=== PATIENT | female | born 1945 | race Caucasian/White ===

== ENCOUNTER 2017-10-30 17:10 | Inpatient (IN) | payer MEDICARE, BC ==
--- NOTE | 2017-10-30 17:49 | EDM.PDOC ---
ED HPI GENERAL MEDICAL PROBLEM - General Chief Complaint: General Stated Complaint: Palpitations Time Seen by Provider: 10/30/17 17:10 Source of Information: Reports: Patient, Family History Limitations: Reports: No Limitations - History of Present Illness INITIAL COMMENTS - FREE TEXT/NARRATIVE: 72 y.o.w.f with a h/o paroxysmal a- fib, HTN and Hypothyroidism, came with her SO to the ED because of F/C and palpitations. On Arrival, her temp was 106 and her palpitations subsided. ECG showed NSR. Pt had a cardiac ablation at [facility] about a year ago. She has a bout 4 episodes of Paroxysmal a-fib a year since the ablation. She is on Metoprolol to prevent a RVR. She has painful urinations and toenail fungus as well. No cough. No other acute medical issues. Temp 38.1 BP 151/59 Pulse ox 93% on RA, HR 91 Onset: Today Onset Date: 10/30/17 Onset Time: 16:00 Duration: Hour(s):, Intermittent, Resolved Prior to Arrival Location: Reports: Chest Quality: Reports: Other (polpitation, no CP) Improves with: Reports: Rest Context: Reports: Other (H/O A fib) Associated Symptoms: Reports: Other (toe nail fungus) Headache Pain Score (Numeric/FACES): 6 - Related Data Allergies Allergy/AdvReac Type Severity Reaction Status Date / Time No Known Allergies Allergy Verified 10/30/17 17:31 Home Meds: Home Meds Doxepin [Doxepin HCl] 25 - 50 mg PO BEDTIME 10/30/17 [History] Hydrochlorothiazide 50 mg PO DAILY 10/30/17 [History] Levothyroxine [Synthroid] 88 mcg PO DAILY@04 10/30/17 [History] Metoprolol Tartrate 100 mg PO BID 10/30/17 [History] Potassium Chloride 10 meq PO DAILY 10/30/17 [History] amLODIPine [Norvasc] 5 mg PO DAILY 10/30/17 [History] Past Medical History Cardiovascular History: Reports: Afib, Hypertension Social & Family History - Family History Family Medical History: Noncontributory - Tobacco Use Smoking Status *Q: Former Smoker Used Tobacco, but Quit: Yes Month/Year Tobacco Last Used: 142 - Caffeine Use Caffeine Use: Reports: Coffee - Alcohol Use Days Per Week of Alcohol Use: 7 Number of Drinks Per Day: 3 Total Drinks Per Week: 21 - Recreational Drug Use Recreational Drug Use: No ED ROS GENERAL - Review of Systems Review Of Systems: See Below Constitutional: Reports: Fever, Chills ([employer]) HEENT: Reports: No Symptoms Respiratory: Reports: No Symptoms Cardiovascular: Reports: Palpitations (resolved [employer]) Endocrine: Reports: No Symptoms GI/Abdominal: Reports: No Symptoms : Reports: Dysuria Musculoskeletal: Reports: No Symptoms Skin: Reports: Other (toe nail fungus) Neurological: Reports: No Symptoms Psychiatric: Reports: No Symptoms Hematologic/Lymphatic: Reports: No Symptoms Immunologic: Reports: No Symptoms ED EXAM, GENERAL - Physical Exam Exam: See Below Exam Limited By: No Limitations General Appearance: Alert, WD/WN, No Apparent Distress Eye Exam: Bilateral Eye: Normal Inspection Ears: Normal External Exam Ear Exam: Bilateral Ear: Auricle Normal Nose: Normal Inspection, Normal Mucosa, No Blood Throat/Mouth: Normal Inspection, Normal Lips, Normal Gums, Normal Voice, No Airway Compromise Head: Atraumatic, Normocephalic Neck: Normal Inspection, Supple, Non-Tender, Full Range of Motion Respiratory/Chest: No Respiratory Distress, Lungs Clear, Normal Breath Sounds, Chest Non-Tender Cardiovascular: Normal Peripheral Pulses, Regular Rate, Rhythm, No Edema, No Gallop, No JVD, No Rub, Systolic Murmur Peripheral Pulses: 2+: Radial (L) GI/Abdominal: Normal Bowel Sounds (Female) Exam: Deferred Rectal (Female) Exam: Deferred Back Exam: Normal Inspection Extremities: Normal Inspection Neurological: Alert, Oriented, CN II-XII Intact, Normal Cognition, Normal Gait Psychiatric: Normal Affect, Normal Mood Skin Exam: Warm, Dry, Intact, Normal Color, No Rash Lymphatic: No Adenopathy EKG INTERPRETATION EKG Date: 10/30/17 Time: 17:20 Rhythm: NSR Rate (Beats/Min): 89 [place]: Normal P-Wave: Present QRS: Normal ST-T: Normal QT: Normal Comparison: NA - No Prior EKG Course - Vital Signs Text/Narrative:: 72 y.o.w.f with a h/o paroxysmal a- fib, HTN and Hypothyroidism, came with her SO to the ED because of F/C and palpitations. On Arrival, her temp was 106 and her palpitations subsided. ECG showed NSR. Pt had a cardiac ablation at [facility] about a year ago. She has a bout 4 episodes of Paroxysmal a-fib a year since the ablation. She is on Metoprolol to prevent a RVR. She has painful urinations and toenail fungus as well. No cough. No other acute medical issues. Temp 38.1 BP 151/59 Pulse ox 93% on RA, HR 91 Imaging: CXR: Atelectasis LLL of lung, No consolidation: as per RAD Labs: WBC 20.7K HGB 14.7 HCT 48.3 Neut 97% UA: WNL Na 133 K 3.2 GFR > 60 BUN 15 Cr 0.9 CRP 2.3 TSH 2.34 ECG: Atrium enlarged per ECG Impression: Palpitations, H/O paroxysmal A-fib, Elevated WBC (DDx Endocarditis) Tinea pedis, H/O Hypothyroidism. Hypokalemia, Hyponatremia, systolic ejection murmur(not new?). Tension H/A Tx: KCL, NS, Motrin for Tension Headache 7.31 pm Consultation: Dr. Roldan, Infection Disease Specialist, [facility]: Admit pt to [facility], repeat Bcx X 3 every 8 hours(total), Hydrate Pt and repeat CXR in am. No ABx at this time! Reexam: Pt's temp was 106 F, she was otherwise in her usual state of bianca, no chills, no cough. ambulating fine. Plan: Admit for OBS on Tele. Last Recorded V/S: Last Vital Signs Temp 37.5 C 10/31/17 12:00 Pulse 60 10/31/17 12:00 Resp 18 10/31/17 12:00 BP 115/59 L 10/31/17 12:00 Pulse Ox 60 L 10/31/17 12:00 - Orders/Labs/Meds Orders: Active Orders 24 hr Category Date Time Status CXR [Chest 2V] [CR] Stat Exams 10/30/17 18:41 Taken CULTURE BLOOD [BC] Urgent Lab 10/30/17 19:05 Received CULTURE BLOOD [BC] Urgent Lab 10/30/17 19:15 Received UA W/MICROSCOPIC [URIN] Stat Lab 10/30/17 17:54 Ordered Blood Culture x2 Reflex Set [OM.PC] Urgent Oth 10/30/17 18:44 Ordered EKG 12 Lead [EK] Routine Ther 10/30/17 17:59 Ordered Medication Orders Amlodipine Besylate (Norvasc) 5 mg PO DAILY [facility] Last Admin: 10/31/17 09:34 Dose: 5 mg Clindamycin Phosphate 600 mg/ (Sodium Chloride) 54 mls @ 150 mls/hr IV Q8H [facility] Last Admin: 10/31/17 12:04 Dose: 150 mls/hr Nafcillin Sodium 2 gm/ Sodium (Chloride) 100 mls @ 100 mls/hr IV Q4H [facility] Last Admin: 10/31/17 11:01 Dose: 100 mls/hr Ibuprofen (Motrin) 800 mg PO Q6H PRN PRN Reason: Pain (mild 1-3) Last Admin: 10/31/17 14:11 Dose: 800 mg Admin: 10/31/17 07:51 Dose: 800 mg Levothyroxine Sodium (Synthroid) 88 mcg PO 0600 [facility] Metoprolol Tartrate (Lopressor) 100 mg PO BID [facility] Last Admin: 10/31/17 09:35 Dose: 100 mg Potassium Chloride (Klor-Con 10) 10 meq PO DAILY [facility] Last Admin: 10/31/17 09:35 Dose: 10 meq Labs: Laboratory Tests 10/30/17 10/30/17 10/30/17 Range/Units 17:54 18:00 18:00 WBC 20.7 H (4.5-12.0) X10-3/uL RBC 4.82 (3.23-5.20) x10(6)uL Hgb 14.6 (11.5-15.5) g/dL Hct 42.7 (30.0-51.3) % MCV 88.5 (80-96) fL MCH 30.2 (27.7-33.6) pg MCHC 34.2 (32.2-35.4) g/dL RDW 12.3 (11.5-15.5) % Plt Count 209 (125-369) X10(3)uL MPV 9.8 (7.4-10.4) fL Neut % (Auto) 92.4 H (46-82) % Lymph % (Auto) 2.5 L (13-37) % [place] % (Auto) 2.3 L (4-12) % Eos % (Auto) 0 L (1.0-5.0) % Baso % (Auto) 3 H (0-2) % Neut # (Auto) 19.1 H (1.6-8.3) # Lymph # (Auto) 0.5 L (0.6-5.0) # [place] # (Auto) 0.5 (0.0-1.3) # Eos # (Auto) 0.0 (0.0-0.8) # Baso # (Auto) 0.6 H (0.0-0.2) # Sodium 133 L (135-145) mmol/L Potassium 3.2 L (3.5-5.3) mmol/L Chloride 97 L (100-110) mmol/L Carbon Dioxide 26 (21-32) mmol/L BUN 15 (7-18) mg/dL Creatinine 0.9 (0.55-1.02) mg/dL Est Cr Clr Drug Dosing 54.45 mL/min Estimated GFR (MDRD) > 60 (>60) BUN/Creatinine Ratio 16.7 (9-20) Glucose 105 (80-116) mg/dL Lactic Acid (0.4-2.2) mmol/L Calcium 8.7 (8.6-10.2) mg/dL Magnesium (1.8-2.5) mg/dL C-Reactive Protein (0.5-0.9) mg/dL TSH, Ultra Sensitive (0.36-3.74) IU/mL Urine Color Yellow (YELLOW) Urine Appearance Clear (CLEAR) Urine pH 7.0 H (5.0-6.5) Ur Specific [place] 1.005 L (1.010-1.025) Urine Protein Negative (NEGATIVE) mg/dL Urine Glucose (UA) Normal (NEGATIVE) mg/dL Urine Ketones Negative (NEGATIVE) mg/dL Urine Occult Blood Negative (NEGATIVE) Urine Nitrite Negative (NEGATIVE) Urine Bilirubin Negative (NEGATIVE) Urine Urobilinogen Normal (NEGATIVE) mg/dL Ur Leukocyte Esterase Negative (NEGATIVE) Urine RBC 0-5 (0) Urine WBC 0-5 (0) Ur Squamous Epith Cells Occasional (NS,R,O) Urine Bacteria Rare H (NS) 10/30/17 10/30/17 10/30/17 Range/Units 18:00 18:00 18:00 WBC (4.5-12.0) X10-3/uL RBC (3.23-5.20) x10(6)uL Hgb (11.5-15.5) g/dL Hct (30.0-51.3) % MCV (80-96) fL MCH (27.7-33.6) pg MCHC (32.2-35.4) g/dL RDW (11.5-15.5) % Plt Count (125-369) X10(3)uL MPV (7.4-10.4) fL Neut % (Auto) (46-82) % Lymph % (Auto) (13-37) % [place] % (Auto) (4-12) % Eos % (Auto) (1.0-5.0) % Baso % (Auto) (0-2) % Neut # (Auto) (1.6-8.3) # Lymph # (Auto) (0.6-5.0) # [place] # (Auto) (0.0-1.3) # Eos # (Auto) (0.0-0.8) # Baso # (Auto) (0.0-0.2) # Sodium (135-145) mmol/L Potassium (3.5-5.3) mmol/L Chloride (100-110) mmol/L Carbon Dioxide (21-32) mmol/L BUN (7-18) mg/dL Creatinine (0.55-1.02) mg/dL Est Cr Clr Drug Dosing mL/min Estimated GFR (MDRD) (>60) BUN/Creatinine Ratio (9-20) Glucose (80-116) mg/dL Lactic Acid 2.0 (0.4-2.2) mmol/L Calcium (8.6-10.2) mg/dL Magnesium 1.8 (1.8-2.5) mg/dL C-Reactive Protein (0.5-0.9) mg/dL TSH, Ultra Sensitive 2.43 (0.36-3.74) IU/mL Urine Color (YELLOW) Urine Appearance (CLEAR) Urine pH (5.0-6.5) Ur Specific [place] (1.010-1.025) Urine Protein (NEGATIVE) mg/dL Urine Glucose (UA) (NEGATIVE) mg/dL Urine Ketones (NEGATIVE) mg/dL Urine Occult Blood (NEGATIVE) Urine Nitrite (NEGATIVE) Urine Bilirubin (NEGATIVE) Urine Urobilinogen (NEGATIVE) mg/dL Ur Leukocyte Esterase (NEGATIVE) Urine RBC (0) Urine WBC (0) Ur Squamous Epith Cells (NS,R,O) Urine Bacteria (NS) 10/30/17 Range/Units 18:00 WBC (4.5-12.0) X10-3/uL RBC (3.23-5.20) x10(6)uL Hgb (11.5-15.5) g/dL Hct (30.0-51.3) % MCV (80-96) fL MCH (27.7-33.6) pg MCHC (32.2-35.4) g/dL RDW (11.5-15.5) % Plt Count (125-369) X10(3)uL MPV (7.4-10.4) fL Neut % (Auto) (46-82) % Lymph % (Auto) (13-37) % [place] % (Auto) (4-12) % Eos % (Auto) (1.0-5.0) % Baso % (Auto) (0-2) % Neut # (Auto) (1.6-8.3) # Lymph # (Auto) (0.6-5.0) # [place] # (Auto) (0.0-1.3) # Eos # (Auto) (0.0-0.8) # Baso # (Auto) (0.0-0.2) # Sodium (135-145) mmol/L Potassium (3.5-5.3) mmol/L Chloride (100-110) mmol/L Carbon Dioxide (21-32) mmol/L BUN (7-18) mg/dL Creatinine (0.55-1.02) mg/dL Est Cr Clr Drug Dosing mL/min Estimated GFR (MDRD) (>60) BUN/Creatinine Ratio (9-20) Glucose (80-116) mg/dL Lactic Acid (0.4-2.2) mmol/L Calcium (8.6-10.2) mg/dL Magnesium (1.8-2.5) mg/dL C-Reactive Protein 2.3 H (0.5-0.9) mg/dL TSH, Ultra Sensitive (0.36-3.74) IU/mL Urine Color (YELLOW) Urine Appearance (CLEAR) Urine pH (5.0-6.5) Ur Specific [place] (1.010-1.025) Urine Protein (NEGATIVE) mg/dL Urine Glucose (UA) (NEGATIVE) mg/dL Urine Ketones (NEGATIVE) mg/dL Urine Occult Blood (NEGATIVE) Urine Nitrite (NEGATIVE) Urine Bilirubin (NEGATIVE) Urine Urobilinogen (NEGATIVE) mg/dL Ur Leukocyte Esterase (NEGATIVE) Urine RBC (0) Urine WBC (0) Ur Squamous Epith Cells (NS,R,O) Urine Bacteria (NS) Meds: Medications Generic Name Dose Route Start Last Admin Trade Name Freq PRN Reason Stop Dose Admin Amlodipine Besylate 5 mg 10/31/17 09:00 10/31/17 09:34 Norvasc PO 5 mg DAILY [facility] Administration Clindamycin Phosphate 600 mg/ 54 mls @ 150 mls/hr 10/31/17 11:30 10/31/17 12: 04 Sodium Chloride IV 150 mls/hr Q8H [facility] Administration Nafcillin Sodium 2 gm/ Sodium 100 mls @ 100 mls/hr 10/31/17 11:00 10/31/17 11 :01 Chloride IV 100 mls/hr Q4H [facility] Administration Ibuprofen 800 mg 10/30/17 20:08 10/31/17 14:11 Motrin PO 800 mg Q6H PRN Administration Pain (mild 1-3) Levothyroxine Sodium 88 mcg 11/01/17 06:00 Synthroid PO 0600 [facility] Metoprolol Tartrate 100 mg 10/31/17 09:00 10/31/17 09:35 Lopressor PO 100 mg BID [facility] Administration Potassium Chloride 10 meq 10/31/17 09:30 10/31/17 09:35 Klor-Con 10 PO 10 meq DAILY [facility] Administration Discontinued Medications Generic Name Dose Route Start Last Admin Trade Name Freq PRN Reason Stop Dose Admin Sodium Chloride 1,000 mls @ 125 mls/hr 10/30/17 20:15 10/31/17 04:32 Normal Saline IV 125 mls/hr ASDIRECTED [facility] Administration Ibuprofen 800 mg 10/30/17 20:07 10/30/17 20:15 Motrin PO 10/30/17 20:08 800 mg ONETIME ONE Administration Potassium Chloride 40 meq 10/30/17 18:39 10/30/17 18:47 Klor-Con M20 PO 10/30/17 18:40 40 meq ONETIME ONE Administration Departure - Departure Time of Disposition: 20:30 Disposition: Refer to Observation Condition: Fair Clinical Impression: Elevated WBC count - Discharge Information - My Orders Last 24 Hours: My Active Orders 10/30/17 17:54 UA W/MICROSCOPIC [URIN] Stat 10/30/17 17:59 EKG 12 Lead [EK] Routine 10/30/17 18:41 CXR [Chest 2V] [CR] Stat 10/30/17 18:44 Blood Culture x2 Reflex Set [OM.PC] Urgent 10/30/17 19:05 CULTURE BLOOD [BC] Urgent 10/30/17 19:15 CULTURE BLOOD [BC] Urgent - Assessment/Plan Last 24 Hours: My Active Orders 10/30/17 17:54 UA W/MICROSCOPIC [URIN] Stat 10/30/17 17:59 EKG 12 Lead [EK] Routine 10/30/17 18:41 CXR [Chest 2V] [CR] Stat 10/30/17 18:44 Blood Culture x2 Reflex Set [OM.PC] Urgent 10/30/17 19:05 CULTURE BLOOD [BC] Urgent 10/30/17 19:15 CULTURE BLOOD [BC] Urgent
[2017-10-30] MEDS ORDERED: Potassium Chloride 20 MEQ Tab.ER PO ONE (18:39)
[2017-10-30] MEDS ORDERED: Ibuprofen 800 MG Tab PO ONE (20:07)
[2017-10-30] MEDS: Sodium Chloride 0.9% 1,000 ML IV SCH (20:15)
[2017-10-31] MEDS: Sodium Chloride 0.9% 1,000 ML IV SCH (04:32)
[2017-10-31] MEDS: Ibuprofen 800 MG Tab PO PRN ×3 (07:51→22:12)
[2017-10-31] MEDS: amLODIPine 5 MG Tab PO SCH (09:34)
[2017-10-31] MEDS: Metoprolol Tartrate 100 MG Tab PO SCH ×2 (09:35→21:56)
[2017-10-31] MEDS: Potassium Chloride 10 MEQ Tab.ER PO SCH (09:35)
[2017-10-31] MEDS: Nafcillin 2 GM in Sodium Chloride 0.9% 100 ML IV SCH ×4 (11:01→22:25)
--- NOTE | 2017-10-31 13:41 | HP ---
ADMISSION DATE: 10/30/2017 ADDENDUM: Further discussion, evaluation, and the patient's observation of some swelling of the right lower extremity. New by her report. She had a pedicure about 2 weeks ago, and had a little open wound. May be the source. She has some tenderness in the right upper thigh, suspicion for an ascending cellulitis lymphangitis. We will start on intravenous nafcillin for staph and strep, clindamycin for MRSA. Complementary care and well being, blood cultures to follow accordingly. /[id number] ESTHER/PEDRO
--- NOTE | 2017-10-31 14:19 | HP ---
ADMISSION DATE: 10/30/2017 HISTORY OF PRESENT ILLNESS: Rose Marie Velez is a 72-year-old female, who was seen at [facility] last evening for evaluation of acute onset of illness. 10/29/2017, had worked a long day at local [employer] [place] [employer]. Got home in the evening, slept a little bit, and had awakened with some shakes and chills that lasted for a brief time. Returned to work at the [employer] at 8 a.m., worked for about 4 hours, weak, fatigable, some questionable chills, went to bed, rested, had a single episode where she actually got up and went out into the car to warm herself up. Because of the symptoms and concerns, was seen at [facility] ER. She was noted to have an elevated white count at nearly 21,000, with some neutrophilia, electrolytes satisfactory, potassium 3.2, sodium 133, and was admitted for intervention. She has had two sets of blood cultures, one done about 1800 hours and the next second one done at 0300 hours this morning. Headache was the primary complaint of. No nausea, vomiting, GI symptoms, complicated cough, respiratory difficulty, open wound source, no IV drug use, and exposure to members of the community. Outdoor activities have been present. MEDICATIONS: Present daily medications include: 1. Amlodipine 2.5 mg one p.o. daily, blood pressure. 2. Doxepin 25 mg one p.o. at bedtime, sleep enhancement. 3. HCTZ 50 mg one p.o. daily fluid. 4. Levothyroxine 88 mcg one p.o. daily, hypothyroidism. 5. Metoprolol 100 mg b.i.d. blood pressure. 6. Potassium chloride 10 mEq daily. PAST MEDICAL HISTORY: Significant for no previous operative procedures, complicated fractures, or unusual childhood diseases. Long-standing history of atrial fibrillation with cardioversion in April of 2016. No events since that time. Was on Coumadin for a while, but complicated bleeding. Long-term care other than aspirin noted. SOCIAL HISTORY: Happily . in good health, 72 years of age. [employer]. Nonsmoker. No alcohol consumption or illicit drug use. Two children, son and daughter and one grand child. FAMILY HISTORY: Dad at 52 from complications of heart disease and diabetes. Mom 72, COPD and heart disease. One brother, 2 sisters, one of pancreatic cancer. FAMILY HISTORY: Negative for early heart disease, diabetes mellitus, or inheritable cancers. REVIEW OF SYSTEMS: CONSTITUTIONAL: Please see HPI. EYES: Sees well. EARS: Hears well. OROPHARYNX: Intact dentition. GI: Bowels have been fine. No blood in stools. : Good voiding pattern. No blood in urine. RESPIRATIONS: No complicated cough or respiratory difficulty. CARDIOVASCULAR: Denies chest pain, palpitations, or syncope. SKIN: No open sores. ENDOCRINE: No excessive thirst, urination. ALLERGY: No chronic cough. PSYCHIATRIC: Mood stable. PHYSICAL EXAMINATION: VITAL SIGNS: Stable. 38.0 and 37.7, pulse 83 and 71, blood pressure is 126/50 and 134/80. O2 saturation 93, 92, and now 99. CONSTITUTIONAL: Does not appear to be ill. Vague headache only. HEENT: Reveal funduscopic benign. Conjunctivae clear. Bright tympanic membranes. Clear nasal discharge. Mouth and oropharynx clear. Tongue midline. No intraoral lesions. NECK: Benign. Thyroid small. No adenopathy. CHEST: Clear in all lung beal. No adventitious sounds. HEART: On auscultation, no ectopy or murmur. ABDOMEN: Benign. No hepatosplenomegaly, no surgical scars. AND RECTAL: Deferred. EXTREMITIES: Were well perfused. SKIN: No nevi of consequence. LABORATORY STUDIES: As mentioned, white count 20,700, neutrophilia, sodium 133, potassium 3.2, chloride 97, and GFR greater than 60. Urinalysis, 0-5 red and white cells. DIAGNOSES: Febrile illness, likely viral, West Nile consideration. No evidence of bacteremia. PLAN: We will withhold antibiotics at this time given how well the patient looks. Use of antibiotics, not appropriate. Culture will be definable from sets performed before and set to be provided at 11 o'clock today. Fluids, hydration, and comfort measures. All appears to be well. We will await culture intervention. /[id number] /PEDRO
[2017-10-31] MEDS ORDERED: Sodium Chloride 0.9% 500 ML IV ONE (14:46)
[2017-10-31] MEDS ORDERED: Potassium Chloride 20 MEQ in Premix Bag 2 BAG IV SCH (15:00)
[2017-10-31] MEDS: Potassium Chloride 100 ML IV SCH ×2 (16:42→19:14)
[2017-10-31] MEDS ORDERED: Sodium Chloride 0.9% 250 ML IV SCH (18:15)
[2017-10-31] MEDS: Doxepin 25 MG Cap PO SCH (22:11)
[2017-11-01] MEDS: Nafcillin 2 GM in Sodium Chloride 0.9% 100 ML IV SCH ×6 (03:36→23:43)
[2017-11-01] MEDS: Levothyroxine 88 MCG Tab PO SCH (05:43)
[2017-11-01] MEDS: Ibuprofen 800 MG Tab PO PRN ×3 (05:45→23:44)
[2017-11-01] MEDS ORDERED: Enoxaparin 30 MG/0.3 ML Syringe SUBCUT SCH (09:45)
[2017-11-01] MEDS: Metoprolol Tartrate 100 MG Tab PO SCH ×2 (10:53→20:49)
[2017-11-01] MEDS: amLODIPine 5 MG Tab PO SCH (10:53)
[2017-11-01] MEDS: Enoxaparin 40 MG/0.4 ML Syringe SUBCUT SCH (11:02)
[2017-11-01] MEDS: Potassium Chloride 10 MEQ Tab.ER PO SCH (11:27)
[2017-11-01] MEDS: Potassium Chloride 20 MEQ Tab.ER PO SCH ×2 (13:23→20:43)
[2017-11-01] MEDS: Sodium Chloride 0.9% 10 ML Syringe FLUSH PRN ×4 (13:25→23:46)
--- NOTE | 2017-11-01 15:33 | PN ---
DATE SEEN: 11/01/2017 SUBJECTIVE: Rose Marie Velez is a 72-year-old, female, admitted with chills, sweats, lethargy, markedly elevated white count, and suspicion for an ascending lymphangitis. She had a previous manicure, pedicure and open wound over the great toe, with increasing redness and swelling now extending along the lymphatic system in the medial thigh. Feeling otherwise better. White count fell from 20,700 on admission to 13.9, potassium was 3.0 this morning. Intravenous potassium not well-tolerated. Blood cultures x36 hours negative. OBJECTIVE: VITAL SIGNS: 36.7, 72, 124/55, mean blood pressure 78, respirations 20, and O2 saturation 92%. GENERAL: Appears comfortable. NECK: Benign. Thyroid small. CHEST: Clear in all lung beal. HEART: No ectopy or murmur. ABDOMEN: Benign. EXTREMITIES: Redness extending from just beneath the knee inferiorly, more medial than lateral, and some redness in the medial thigh and upper thigh. A little tender to touch and warm. Antibiotics on board, intravenous nafcillin and intravenous clindamycin. ASSESSMENT: Lymphangitis/cellulitis right lower leg. PLAN: Culture is pending, fever is abating, warmth and redness are stabilizing. We will wait intervention inpatient care required. ADDENDUM: Addition of Lovenox for DVT prevention. /[id number] ESTHER/PEDRO
[2017-11-01] MEDS: Clindamycin in 0.9 % Sod Chlor 600 MG/50 ML BAG IV SCH (20:46)
[2017-11-01] MEDS: Doxepin 25 MG Cap PO SCH (20:50)
[2017-11-02] MEDS: Nafcillin 2 GM in Sodium Chloride 0.9% 100 ML IV SCH ×3 (03:32→10:26)
[2017-11-02] MEDS: Sodium Chloride 0.9% 10 ML Syringe FLUSH PRN ×5 (03:33→10:25)
[2017-11-02] MEDS: Clindamycin in 0.9 % Sod Chlor 600 MG/50 ML BAG IV SCH ×2 (04:47→11:33)
[2017-11-02] MEDS: Ibuprofen 800 MG Tab PO PRN (06:21)
[2017-11-02] MEDS: Levothyroxine 88 MCG Tab PO SCH (06:22)
[2017-11-02] MEDS: Metoprolol Tartrate 100 MG Tab PO SCH (08:32)
[2017-11-02] MEDS: Potassium Chloride 20 MEQ Tab.ER PO SCH (08:32)
[2017-11-02] MEDS: amLODIPine 5 MG Tab PO SCH (08:33)
[2017-11-02] MEDS: Enoxaparin 40 MG/0.4 ML Syringe SUBCUT SCH (09:56)
[2017-11-02] MEDS ORDERED: Sulfamethoxazole/Trimethoprim 800-160 MG Tab PO SCH (11:30)
--- NOTE | 2017-11-03 07:49 | DISCH ---
DISCHARGE DATE: 11/02/2017 DISCHARGE DIAGNOSES: Cellulitis with fever, right lower extremity. HOSPITAL COURSE: Rose Marie Velez is a 72-year-old female, who was seen at [facility] on 10/30/2017. She presented with acute onset of illness. She had a long day at the local benefit, slept a bit and awakened with some shakes and chills, increasing symptoms, single episode where she felt much too warm. She was seen at [facility], elevated white count, marked fever, and no apparent origin. Laboratory studies of significance revealed white count of 20,700, sodium 132, potassium 3.2, and blood cultures x6 were performed. Initial concern on the part of the ER doctor was "endocarditis". During the early part of her stay, became increasing redness of right lower extremity and extending on the medial aspect from the ankle up to the mid-knee. Tender to touch, warm, and some palpable discomfort at right groin. Thought to be cellulitis with associated infection. Blood cultures over a two-day course revealed no pathogens. White count fell to 13,900. Potassium was moderately low at 3.2, 2.9, 3.0, and 3.1 at discharge, had been given IV and oral potassium and was stable medically. Hydrochlorothiazide, history of, for blood pressure control. Rash defervesced and some hemorrhagic changes occurred. Warmth improved and pain improved. Fever defervesced. Blood cultures were negative. Had been given both intravenous clindamycin and intravenous nafcillin during the hospital stay. No bug to identify MRSA consideration. At the time of discharge, comfortable going home, elevate, limit activity, do not scratch or irritate, down time when she can. Bactrim DS one p.o. b.i.d. for 10 days' duration. Complementary care and well being. Will have appointment in followup with Xiomara Moctezuma PA-C, at [facility] on 11/07/2017. SURGICAL PROCEDURES: None. CONSULTATIONS: None. ADDENDUM: A 30-minute visit, discharge exam and discharge planning. /[id number] ESTHER/PEDRO
== END 2017-11-02 12:55 | disposition home or self-care (01) | DRG 603 ==
LOC: FB.ED 17:10 → FB.MS 20:08 → OBSVTOIN 11-01 09:38
PROVIDERS: ADMIT Family Medicine; ATTEND Family Medicine
DX: D72.829 Elevated white blood cell count, unspecified (principal); L03.115 Cellulitis of right lower limb; I48.0 Paroxysmal atrial fibrillation; R51 Headache; R30.9 Painful micturition, unspecified; R50.9 Fever, unspecified; B35.3 Tinea pedis; E03.9 Hypothyroidism, unspecified; I10 Essential (primary) hypertension; Z87.891 Personal history of nicotine dependence; G44.209 Tension-type headache, unspecified, not intractable; Z98.890 Other specified postprocedural states; Z79.899 Other long term (current) drug therapy
CPT/HCPCS: 36415 ×3; 71046 ×2; 80048 ×2; 81001; 83605; 83735; 84132; 84443; 85025; 85027; 85651; 86140; 86788; 86789; 87040 ×4; 93005; 99285; A9270 ×12; J3480 ×2; J7030 ×8; J7040; J7050 ×4; 96361; 96365; 96366; 96367; 96375; 96376; G0378; J1650; J3490; S0032; S0077

== ENCOUNTER 2019-01-27 17:21 | Emergency (ER) | payer BC, MEDICARE ==
[2019-01-27] MEDS ORDERED: Bupivacaine 0.5% 10 ML SDV INFILT ONE (17:22)
[2019-01-27] MEDS ORDERED: Diphtheria,Pertussis(Acell),Tetanus Vaccine 0.5 ML SDV IM ONE (18:00)
--- NOTE | 2019-01-27 18:43 | EDM.PDOC ---
ED HPI GENERAL MEDICAL PROBLEM - General Chief Complaint: Laceration Stated Complaint: CUT FINGERS BOTH HANDS Time Seen by Provider: 01/27/19 17:30 Source of Information: Reports: Patient, Family History Limitations: Reports: No Limitations - History of Present Illness INITIAL COMMENTS - FREE TEXT/NARRATIVE: 74 y.o.w.f with a H/O A fib, on Eliquis, came to the ED after she cut herself by accident into the tip of her left middle finger by accident while wearing a piece of glass, which broke. The bleeding did not stop with pressure applied to wound. TD was > 10 years ago. No loss of function of her finger. Pt denies of a FB being in her finger. No N/V/D no SOB or any other acute med issues. BP 108/ 83 RR 18 Pulse ox 96% on RA Pulse 74 Temp 36.6 Onset Date: 01/27/19 Onset Time: 16:00 Duration: Minutes:, Hour(s): Location: Reports: Upper Extremity, Left (left 3rd finger) Quality: Reports: Dull Severity: Mild Improves with: Reports: Rest Worsens with: Reports: Movement Context: Reports: Trauma Associated Symptoms: Reports: No Other Symptoms - Related Data Allergies Allergy/AdvReac Type Severity Reaction Status Date / Time Sulfa (Sulfonamide Allergy Cannot Verified 01/27/19 17:39 Antibiotics) Remember Home Meds: Home Meds Doxepin [SINEquan] 75 mg PO BEDTIME 10/30/17 [History] Metoprolol Tartrate 100 mg PO BID 10/30/17 [History] amLODIPine [Norvasc] 5 mg PO DAILY 10/30/17 [History] Levothyroxine [Synthroid] 88 mcg PO 0600 tablet 11/02/17 [Rx] Amiodarone [Cordarone] 200 mg BID 01/27/19 [History] Apixaban [Eliquis] 5 mg BID 01/27/19 [History] hydroCHLOROthiazide [Hydrochlorothiazide] 25 mg DAILY 01/27/19 [History] hydroCHLOROthiazide [Hydrochlorothiazide] 50 mg PO BEDTIME 01/27/19 [History] Past Medical History HEENT History: Reports: Impaired Vision Cardiovascular History: Reports: Afib, Hypertension Gastrointestinal History: Reports: None Genitourinary History: Reports: UTI, Recurrent [employer] History: Reports: Other [employer] History: Psychiatric History: Reports: Depression Endocrine/Metabolic History: Reports: Hypothyroidism, Obesity/BMI 30+ Hematologic History: Reports: Anticoagulation Therapy Dermatologic History: Reports: Eczema - Infectious Disease History Infectious Disease History: Reports: Chicken Pox, Measles, Mumps - Past Surgical History HEENT Surgical History: Reports: None GI Surgical History: Reports: Appendectomy Female Surgical History: Reports: Hysterectomy Social & Family History - Family History Family Medical History: Noncontributory - Tobacco Use Smoking Status *Q: Former Smoker Years of Tobacco use: 35 Used Tobacco, but Quit: Yes Month/Year Tobacco Last Used: 1995 - Caffeine Use Caffeine Use: Reports: Coffee Caffeine Use Comment: 2 cups per day in the AM. - Alcohol Use Days Per Week of Alcohol Use: 2 Number of Drinks Per Day: 2 Total Drinks Per Week: 4 - Recreational Drug Use Recreational Drug Use: No ED ROS GENERAL - Review of Systems Review Of Systems: See Below Constitutional: Reports: No Symptoms HEENT: Reports: No Symptoms Respiratory: Reports: No Symptoms Cardiovascular: Reports: No Symptoms Endocrine: Reports: No Symptoms GI/Abdominal: Reports: No Symptoms : Reports: No Symptoms Musculoskeletal: Reports: No Symptoms Skin: Reports: Wound (tip of left 3rd finger) Neurological: Reports: No Symptoms Psychiatric: Reports: No Symptoms Hematologic/Lymphatic: Reports: No Symptoms Immunologic: Reports: No Symptoms ED EXAM, SKIN/RASH Exam: See Below Exam Limited By: No Limitations General Appearance: Alert, WD/WN, Mild Distress Eye Exam: Bilateral Eye: Normal Inspection Ears: Normal External Exam Nose: Normal Inspection Throat/Mouth: Normal Inspection Head: Atraumatic, Normocephalic Neck: Normal Inspection, Supple, Non-Tender Respiratory/Chest: No Respiratory Distress, Lungs Clear, Normal Breath Sounds Cardiovascular: Irregularly Irregular Peripheral Pulses: 2+: Carotid (R) GI/Abdominal: Normal Bowel Sounds (Female) Exam: Deferred Rectal (Female) Exam: Deferred Back Exam: Normal Inspection, Full Range of Motion Extremities: Normal Inspection, Other (LAC left middle finger) Neurological: Alert, Oriented, CN II-XII Intact, Normal Cognition, Normal Gait Psychiatric: Normal Affect, Normal Mood Skin: Warm, Dry, Other (Lac left midle finger) Lymphatic: No Adenopathy ED SKIN PROCEDURES - Laceration/Wound Repair Left Digit - 3rd (Middle) Appearance: Irregular, Clean Distal NVT: Neuro & Vascular Intact, No Tendon Injury Anesthetic Type: Digital Local Anesthesia - Bupivicaine (Marcaine): 0.5% Plain Local Anesthetic Volume: 2cc Skin Prep: Providone-Iodine (Betadine) Saline Irrigation (cc's): 2 Exploration/Debridement/Repair: Wound Explored, In a Bloodless Field, Explored to Base Lac/Wound length In cm: 2 Suture Size: 4-0 Suture Type: Other (ethilon) Tetanus Status Addressed: Yes (today) Complications: No Course - Vital Signs Text/Narrative:: 74 y.o.w.f with a H/O A fib, on Rayo, came to the ED after she cut herself by accident into the tip of her left middle finger by accident while wearing a piece of glass, which broke. The bleeding did not stop with pressure applied to wound. TD was > 10 years ago. No loss of function of her finger. Pt denies of a FB being in her finger. No N/V/D no SOB or any other acute med issues. BP 108/ 83 RR 18 Pulse ox 96% on RA Pulse 74 Temp 36.6 PE: WNWD W F with a finger LAC at the tip of her left middle finger. No FB seen. A mild abrasion at the palm left hand, non bleeding. Pt is planned to be cardioverted in March at [facility]. Imaging: Not indicated Labs: Not indicated Procedure: Please see note above Impression: LAC left middle finger, repaired in te ED Tx: Wound care, please see the nursing note. Reexam: Bleeding stopped. Plan: D/C with instructions Last Recorded V/S: Last Vital Signs Temp 36.6 C 01/27/19 17:30 Pulse 66 01/27/19 18:34 Resp 18 01/27/19 18:34 BP 110/72 01/27/19 18:34 Pulse Ox 97 01/27/19 18:34 - Orders/Labs/Meds Meds: Medications Discontinued Medications Generic Name Dose Route Start Last Admin Trade Name Freq PRN Reason Stop Dose Admin Diphtheria/Tetanus/Acell Pertussis 0.5 ml 01/27/19 18:00 01/27/19 18:35 Adacel IM 01/27/19 18:01 0.5 ml .ONCE ONE Administration Departure - Departure Time of Disposition: 18:42 Disposition: Home, Self-Care 01 Condition: Good Clinical Impression: Laceration - Discharge Information Instructions: VIS, Multiple Vaccines (DTaP, Hib, Hepatitis B, Polio, PCV13) - CDC (03/16), Sutured Wound Care, [id number] Referrals: Xiomara Moctezuma PA [Primary Care Provider] - Forms: ED Department Discharge Additional Instructions: Please apply neosprine to wound twice daily for 5 days, wound check in 3 days at clinic, have sutures removed at clinic in 10 days at clinic, come back if your symptoms get worse acutely. Watch for signs of infection. Tylenol as needed for pain.
== END 2019-01-27 18:57 | disposition home or self-care (01) ==
LOC: FB.ED 17:21
DX: S61.213A Laceration without foreign body of left middle finger without damage to nail, initial encounter (principal); I48.91 Unspecified atrial fibrillation; I10 Essential (primary) hypertension; F32.9 Major depressive disorder, single episode, unspecified; E03.9 Hypothyroidism, unspecified; Z88.2 Allergy status to sulfonamides; Z79.899 Other long term (current) drug therapy; Z79.01 Long term (current) use of anticoagulants; Z87.891 Personal history of nicotine dependence; Z23 Encounter for immunization; W25.XXXA Contact with sharp glass, initial encounter
CPT/HCPCS: 12001; 90471; 90715; 99282; J3490; 12011

== ENCOUNTER 2024-08-05 14:02 | Emergency (ER) | payer MEDICARE ==
[2024-08-05 14:31] LABS: BASOPHILS PERCENT AUTO 0.7 % (0.2-1.5); EOSINOPHILS ABSOLUTE AUTO 0.1 x10-3/uL (0.0-0.8); EOSINOPHILS PERCENT AUTO 2.3 % (0.6-8.1); HEMATOCRIT 47.5 % (34.2-48.2); HEMOGLOBIN 16.1 g/dL (11.4-15.5); MEAN CORPUSCULAR HEMOGLOBIN 30.2 pg (23.9-33.9); MEAN CORPUSCULAR HGB CONC 33.8 g/dL (31.9-34.8); MEAN CORPUSCULAR VOLUME 89.3 fL (76.7-100.5); MEAN PLATELET VOLUME 8.1 fL (7.1-12.4); MONOCYTES ABSOLUTE AUTO 0.5 x10-3/uL (0.3-1.0); MONOCYTES PERCENT AUTO 8.4 % (4.4-15.7); NEUTROPHILS ABSOLUTE AUTO 4.4 x10-3/uL (1.5-6.3); NEUTROPHILS PERCENT AUTO 72.6 % (30.8-76.2); PLATELET COUNT,PLT 260 x10(3)uL (151-488); RED BLOOD CELL COUNT 5.32 x10(6)uL (3.60-5.20); RED CELL DISTRIBUTION WIDTH 14.6 % (12.3-16.5); WHITE BLOOD CELL COUNT,WBC 6.1 x10-3/uL (3.0-10.3)
[2024-08-05 14:39] LABS: BLOOD UREA NITROGEN,BUN 27 mg/dL (7-18); BUN/CREATININE RATIO 19.3 (9-20); CALCIUM 8.9 mg/dL (8.6-10.2); CARBON DIOXIDE,CO2 28 mmol/L (21-32); CHLORIDE,CL 95 mmol/L (100-110); CREATININE 1.4 mg/dL (0.55-1.02); EST CRCL DRUG DOSING (CG) 29.06 mL/min; ESTIMATED GFR 39 mL/min (>60); GLUCOSE RANDOM 101 mg/dL (80-116); SODIUM,NA 132 mmol/L (135-145)
[2024-08-05 14:45] LABS: A/G RATIO 0.9; ALANINE AMINOTRANSFERASE,ALT 19 U/L (12-36); ALBUMIN 3.4 g/dL (3.2-4.6); ALKALINE PHOSPHATASE 85 IU/L (56-112); ASPARTATE AMNIOTRANSFERASE,AST 17 IU/L (5-25); BILIRUBIN TOTAL 0.7 mg/dL (0.1-1.3); PROTEIN TOTAL,TP 7.4 g/dL (6.0-8.0)
[2024-08-05 15:00] LABS: APPEARANCE,URINE CLEAR (CLEAR); BILIRUBIN,URINE NEGATIVE (NEGATIVE); COLOR,URINE YELLOW (YELLOW); GLUCOSE,URINE NORMAL (NORMAL); KETONES,URINE NEGATIVE (NEGATIVE); LEUKOCYTE ESTERASE,URINE NEGATIVE (NEGATIVE); NITRITE,URINE NEGATIVE (NEGATIVE); OCCULT BLOOD,URINE NEGATIVE (NEGATIVE); PROTEIN,URINE NEGATIVE (NEGATIVE); UROBILINOGEN,URINE NORMAL (NEGATIVE)
== END 2024-08-05 15:25 | disposition home or self-care (01) ==
LOC: FB.ED 14:02
DX: R41.82 Altered mental status, unspecified (principal); E03.9 Hypothyroidism, unspecified; E66.9 Obesity, unspecified; R94.02 Abnormal brain scan; Z88.2 Allergy status to sulfonamides; Z79.899 Other long term (current) drug therapy; Z79.890 Hormone replacement therapy; Z90.49 Acquired absence of other specified parts of digestive tract; Z68.31 Body mass index [BMI] 31.0-31.9, adult
CPT/HCPCS: 36415; 70450; 80053; 81003; 82947; 85025; 99284; 99285